=== PATIENT | male | born 1990 | race Caucasian/White ===

== ENCOUNTER 2016-11-07 08:53 | Inpatient (IN) | payer OTHER ==
[~2016-11-07] VITALS: Ht 188 cm; Wt 92.3 kg
--- NOTE | ~2016-11-07 | RESCARESUM ---
"PATIENT: ASHLEY GERBER | | [facility] UNIT #: [id number] | [address] AGE/SEX: 26 M : [birth year] | [address] | [place] [address] ADMIT/REG DATE: 11/07/16 | ROOM: [facility] LOC: ADTC | ADTC | Summary of Residential Care Primary [facility] Date of Admission: 11/07/16 Date of Discharge: 11/14/16 Referral Source: probation Primary Care Provider Prior to Admission: None Admitting Diagnosis: F10.20 Alcohol Use Disorder, severe; F17.200, Tobacco Use Disorder Discharge Diagnosis: Same as above Goals Achieved: No Goals were achieved as client left AMA. Continued Obstacles to Sobriety/Relapse Issues: Client left AMA Family Issues Addressed: None Y Individual Therapy Y Group Therapy Y Educational Series on Substance Abuse N Parents/Significant Others Attended Family Program N Acute Medical Problems During the Course of Treatment N Transferred to Hospital During the Course of Treatment Y Accepting of Substance Abuse Problem N Non-accepting of Substance Abuse Problem N Required Psychological or Psychiatric Consultation During the Course of Treatment Completed AA Step # 0 During This Level of Care Significant Incidences During Treatment: Client left AMA due to receiving a letter in the mail from [facility] [address] stating he had a court hearing for revoktion of probation and was being brought up on original charges. Reason For Discharge: N Completed Residential TX Goals and Ready For Next Level of Care Y Left Tx Against Medical Advice/Treatment Goals Not Complete N Completed Residential Tx Goals But Refusing Continuing Care Recommendations N Discharged Due to Noncompliance/Treatment Goals not Completed N Discharged Earlier Than Planned Due to: Continuing Care Plan/Recommendations: N Intensive Partial Care Y Sponsor N Partial Care Y AA Meetings/NA Meetings N Outpatient N Co-dependency Services N Therapeutic Community N 1[address] N [address] N Mental Health Therapy N Marriage Counseling Y Other PATIENT: ASHLEY GERBER | | [facility] UNIT #: [id number] | [address] AGE/SEX: 26 M : 88 | [address] | [place] [address] ADMIT/REG DATE: 11/07/16 | ROOM: [facility] LOC: ADTC | ADTC | Summary of Residential Care Specific Continuing Care Plan: It is recommended that client follow original recommendations of residential treatment. PRIMARY COUNSELOR: Jesusita Franklin"
--- NOTE | 2016-11-07 11:04 | NUR ---
ADMISSION NOTE Rights/Responsibilities: Copy given and explained to client. Signed and accepted by client. Client oriented to physical lay out of the ADTC unit, given Big Book and admission packet. A Justin was assigned. Sadiq Client is a 26yr old male. Referred by probation. Lives in [place], [place]. Brought totx by friend. DOC Alcohol, last used 10/28/16, 12 pack and a pt. daily. Allergies: PCN, Meds: none. No family participation at this time. Initial paperwork given and guidelines gone over Doctor has been notified.
--- NOTE | 2016-11-07 16:00 | NUR ---
Recovery 101 1 hr/ Clients all participated in reading, highlighting and discussing the Big Book on areas about honest, acceptance, living in problem vs living in solution, resentments, 1/2 measures, and the 12 promises.
--- NOTE | 2016-11-07 22:31 | NUR ---
Tech note: Client went to an onsite NA meeting. He was checked into his room, seen by the DR and gave his first intro. SE; Entering treatment.
--- NOTE | 2016-11-08 04:17 | NUR ---
Bed note: Client was in bed with eyes closed and no distress at all bed checks.
--- NOTE | 2016-11-08 12:42 | NUR ---
A.M. 1.5 hr res group/ratio 1:10/ Group heard a getting started and a goodbye letter to addiction. Discussed having resentment towards self, how kids are forgiving, and we oriented 3 new group members. This client was oriented for his first group. He related and sees his addiction has affected his kids.
--- NOTE | 2016-11-08 13:25 | NUR ---
Tech Note: Client participated in light stretching for morning exercise. Client stated that he is working on, "How to Get Started in Treatment."
--- NOTE | 2016-11-08 13:36 | NUR ---
Education One Hour: Client heard a presentation on Sexually Transmitted Disease.
--- NOTE | 2016-11-08 14:23 | NUR ---
Medication Note: Client took prn ibuprophen for H/A rated at 4.
--- NOTE | 2016-11-08 16:09 | NUR ---
Relapse Prevention Education, 1.0 hours, Client attended and actively participated in relapse prevention education which focused on a Relapse Prevention Quiz and discussion over the answers.
--- NOTE | 2016-11-08 16:17 | NUR ---
Individual Therapy, 1.0 hours, This session focused on orienting client to how treatment works. Client was welcomed and asked to explain the chain of events that led him to residential treatment. Client was advised he will see his counselor twice a week, is required to attend all programming and be on time, discussed family participation and signed release forms, explained visiting hours and no phone privileges for the first week, explained to wave at the [facility] if awake during bed check, and reviewed his initial treatment plan.
--- NOTE | 2016-11-08 16:18 | NUR ---
Trauma Note: Client denies any form of trauma.
--- NOTE | 2016-11-08 16:19 | NUR ---
Family Note: Client's ex- was contacted to see if she would be interested in attending family education and given the information on visiting hours.
--- NOTE | 2016-11-08 20:30 | NUR ---
education note: 1 hour lecture by counselor on" what knox are you willing to pay"
--- NOTE | 2016-11-08 22:57 | NUR ---
Tech note: Client attended the Alumni meeting, participated in guided meditation and attended an onsite AA meeting. SE; Group
--- NOTE | 2016-11-09 04:58 | NUR ---
Bed note: Client was in bed with eyes closed and motionless at all bed checks.
--- NOTE | 2016-11-09 09:02 | HP ---
ADMIT: 11/07/2016 RM/LOC: Crys508 [facility] MR#: [id number] [address] [place], [place] [address] ASHLEY GERBER [place] [address] [place] [id number] History and Physical SEX: M AGE: 26 : 1990 DATE OF SERVICE: This is for his admission to the residential care program with [facility]. CHIEF COMPLAINT: Alcoholism, drinking out of control while on probation. CLINICAL HISTORY: The patient is a 26-year-old white male, admitted to the residential care program at the [facility] for treatment of his alcohol use disorder. The patient readily admits he has a problem with alcohol. He notes even though he is on probation, he has continued to drink, and now is in risk of having his probation revoked because of recent arrest for drinking while on probation. The patient notes he is currently on probation for alcohol-related charges. The patient was arrested approximately a year ago for making terroristic threats. He actually ended up spending six months in longterm, and then was placed on probation. Despite being on probation, he has continued to drink or I should note relapse while on probation. Had been sober for almost a year when he relapsed in May of 2016, and has progressively been drinking more over the last several months. He notes that when he does drink, he usually drinks beer. Prior to being on probation, he was drinking daily, drinking to the point of intoxication, passing out, and having frequent blackouts. Its usually during the blackouts that he gets into the legal problems, which is what occurred when he was arrested for terroristic threats. A typical day of drinking would be to drink at least a 12 pack of beer and then after he has been drinking beer for most of the night, he usually switches to vodka and will have several shots or several mixed drink. It is when he starts drinking the vodka that he progresses into the blackouts. He notes that he does not use any other drugs. He experimented with marijuana once at age 15 and has never used it since. He denies any previous use of methamphetamine or cocaine. No abuse of prescription drugs. Alcohol is his drug of choice and it has been his ongoing drinking that has led to his multiple legal problems, which subsequently led to his probation and now his treatment here at the [facility]. Because of his drinking while on probation, he had started outpatient treatment at [facility] in [place], but continued to drink while in outpatient treatment. Therefore, they recommended a higher level of care. PAST MEDICAL HISTORY/PREVIOUS HOSPITALIZATIONS: He was hospitalized at age 4 with pneumonia and sepsis. He actually developed a septic hip and had to have surgical procedure for drainage and irrigation of his infected hip, was then on antibiotics, and was in the hospital for several weeks. He notes this was when he was age 4. Since that time, he has had no other hospitalizations or surgical procedures. CURRENT MEDICATIONS: None. ALLERGIES: HE IS ALLERGIC TO PENICILLIN. MEDICAL ILLNESSES: He denies any chronic health problems. He notes his general health is good. ADMIT: 11/07/2016 RM/LOC: A.508 [facility] MR#: [id number] [address] [place] [id number] ASHLEY GERBER [address] [place] [id number] History and Physical SEX: M AGE: 26 : 1990 REVIEW OF SYSTEMS: A 12-point review of systems is negative with no significant cardiac, pulmonary, GI, , musculoskeletal, or neurologic problems. He is noted to be a smoker. He also uses chewing tobacco. Smokes about a pack a day, but denies any respiratory complaints. SOCIAL HISTORY: The patient notes he has been once. His marriage lasted for 5 years. His drinking and legal problems played a major role in why they got . He has 3 daughters from his marriage, one daughter age 5 and a pair of twin girls age 3. He has another son age 2 from a relationship since his divorce. The patient notes that he dropped out of high school in the 11th grade, and has never gotten his GED. 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 Currently is unemployed. FAMILY HISTORY: He notes his father is . His father was an alcoholic and apparently of multiple strokes at the age of 42. His mother is an alcoholic. She currently is in treatment. He notes a strong history of alcoholism on both sides of his family. He notes he is the middle child. He has an older sister and a younger sister, neither of whom have had any alcohol- related issues. PHYSICAL EXAM: VITAL SIGNS: His temperature is 94.6, pulse is 73, respirations 24, blood pressure 133/93. His height is 6 feet 2 inches, weight 202 pounds. GENERAL: The patient is a 26-year-old white male, who appears his stated age. He is in no acute distress. HEENT: Reveals his ears to be clear. His nose has very noticeable septal deviation due to old fractures, deviated nasal septum. He does have a little difficulty breathing through his nose. Throat today is noninflamed. Oropharynx is normal. Dentition is in poor repair. NECK: Supple. Thyroid not enlarged. No cervical adenopathy. LUNGS: Noted to be clear. HEART: Regular rhythm without murmur. ABDOMEN: Nontender. No masses. No organomegaly. Bowel sounds are normoactive. He has no CVA or suprapubic tenderness. GENITALIA: Normal male. EXTREMITIES: Normal to gross exam. No clubbing or cyanosis. No calf tenderness. NEUROLOGICAL: He is intact with no focal deficit. Balance and gait today are normal. Cranial nerves II through XII are grossly intact. MENTAL STATUS EXAMINATION: He is pleasant, cooperative. Affect is appropriate. No bizarre ideation. No delusions. No significant depressive ADMIT: 11/07/2016 RM/LOC: A.508 [facility] MR#: [id number] [address] [place] [id number] ASHLEY GERBER [address] [place] [address] History and Physical SEX: M AGE: 26 : 1990 symptoms. He is oriented x3. Insight is limited. Judgment is guarded. ASSESSMENT AT THE TIME OF ADMISSION: 1. Alcohol use disorder, severe. 2. Tobacco use disorder. 3. Gastroesophageal reflux disease/chronic gastritis. PLAN: Plan is to admit the patient to the residential care program at the [facility] with a tentative discharge date of 12/05/2016. Upon completion of treatment, he would like to go to a senior living house. He recognizes that he is going to need some additional support and a structured environment to help maintain his long-term sobriety. Aubrey Silva MD/ malcolm JOB #: [id number] CC: Aubrey Silva, Attending Physician FAMILY PHYSICIAN, Family Physician
--- NOTE | 2016-11-09 10:41 | NUR ---
Tech notes: Client is working on Step 1
--- NOTE | 2016-11-09 11:30 | NUR ---
GROUP 1.5 HRS. 1:11 Discussion included the need for appropriate boundaries on the unit and working towards recovery/new behaviors, not addiction/old behaviors. Clients also discussed the effects on addiction as peers had parents that were addicts and then became the parent who addiction effected their own kids. This client was mostly quiet but appeared attentive.
--- NOTE | 2016-11-09 12:37 | NUR ---
Education note: Client had education by [facility]
--- NOTE | 2016-11-09 17:27 | NUR ---
SPIRITUAL EDUCATION 1 HR. Todays topics were orienting newcomers, and taking a look at Dilshad Gomez's 5 SECRETS TO SUCCESS which include a look at the miracles of the human body as blessings.
--- NOTE | 2016-11-09 20:57 | NUR ---
education: 1 hour video on unresolved anger and group discussion with counselor
--- NOTE | 2016-11-09 22:13 | NUR ---
Tech note: Client worked on beaded project and attended an onsite NA meeting. SE; NA meeting
--- NOTE | 2016-11-10 04:03 | NUR ---
Bed note: Client was in bed with eyes closed and no distress at all bed checks.
--- NOTE | 2016-11-10 10:30 | NUR ---
Tech Note: Client participated in Spiritual Enrichment. Client stated that he is working on Step One.
--- NOTE | 2016-11-10 11:30 | NUR ---
AM GRP 1.5 HRS, Ratio 1:11/ Clt participated in grp discussion and could relate to how his addiction hurt his kids and how important it is to stay clean and work recovery. He also could relate to how his Mom's addiction hurt him. He advised that he grew up in her addiction and had to figure things out himself.
--- NOTE | 2016-11-10 13:40 | NUR ---
Education 1 Hour: Client heard a presentation from a member of the recovery community who shared his experience, strength and hope.
--- NOTE | 2016-11-10 16:28 | NUR ---
step education 1 hr/ Focus was on step 2, handed out some questions they completed on paper and then opened it up for discussion. This client participated.
--- NOTE | 2016-11-10 19:00 | NUR ---
Individual Therapy, 1.0 hours, This session focused on review of clients BPS and his Getting Started Packet. Client was given Step 1 and feelings letters for assignments.
--- NOTE | 2016-11-10 23:49 | NUR ---
Tech Note: Client attended Guided Meditation and A.A.Meeting. No Walk-meeting with counselor at 7pm SE: All Day
--- NOTE | 2016-11-11 04:26 | NUR ---
Eduction: 1 Hour. Client attended "Unresolved Anger" video & discussion presented by staff.
--- NOTE | 2016-11-11 11:30 | NUR ---
GROUP 1.5 HR/ 11:1 Clients all reviewed rules and heard new member share about himself. This client was attentive and shared about dad dying of stroke, brother dying age 28, and these were the 2 people that meant the most to him. He did share GS packet about loss of dad, being in grouphomes, moving alot in adult life, having anger depression and was bad in school after loss of his father. He said his dad hung out in bars and used meth. His mother was drunk as a kid and not there for him. He doesn't want to be like his mom. (Could benefit from EMDR?)
--- NOTE | 2016-11-11 13:00 | NUR ---
PEER REVIEWS 1.5 HRS: Clt participated in peer review process and was able to give open and honest feedback to those receiving a review.
--- NOTE | 2016-11-11 16:25 | NUR ---
Tech Note: Client participated in group walk for exercise and watched "Recovery Issues Part 3" for afternoon video. Client is working on Step 1 and Feelings Letters.
--- NOTE | 2016-11-11 22:50 | NUR ---
TECH NOTE: Client participated in reading guidelines and watched tv/movies. attended off site optional AA meeting SE: group
--- NOTE | 2016-11-12 04:12 | NUR ---
Bed Note: Clt lay motionless in bed with eyes closed showing no distress at all bed checks.
--- NOTE | 2016-11-12 16:06 | NUR ---
Tech Note: Client attended NA Panel and is working on Step 1 and Feelings Letters.
--- NOTE | 2016-11-12 20:29 | NUR ---
Tech note: Clt played a game for recreation and attended offsite AA mtg. Clt watched tv and movies. SE was peers
--- NOTE | 2016-11-13 04:38 | NUR ---
Bed Note: Clt lay motionless in bed with eyes closed showing no distress at last two bed checks. The last bed check clt looked at tech.
--- NOTE | 2016-11-13 15:56 | NUR ---
Tech Note: Client participated in Big Book Study. Client stated that he is working on Step One and writing a letter to himself.
--- NOTE | 2016-11-13 22:51 | NUR ---
Tech Note: Clt attended AA panel and watched movies. SE was AA panel
--- NOTE | 2016-11-14 04:40 | NUR ---
Bed Note: Clt lay motionless in bed with eyes closed showing no distress at all bed checks.
--- NOTE | 2016-11-14 10:17 | NUR ---
Tech notes: Client is working on Step 1, Fl's and Mtg with esthela
--- NOTE | 2016-11-14 11:30 | NUR ---
Morning Group, 07/19 ration, 1.5 hours, Client attended and actively participated in group discussion. Client shared his feelings letter to his ex- and listened to others feedback on it.
--- NOTE | 2016-11-14 13:32 | NUR ---
Education: Client attended education by [facility] on Infection prevention.
--- NOTE | 2016-11-14 15:00 | NUR ---
Individual Session, 1.0 hours, This session focused on client's fear of going to retirement. Client received a letter that his probation was going to be revoked and he talked about wanting to go home and be with his kids in case he was going to go to retirement for 7 years. Client was asked to think about it and go to the chapel to pray about it. Client stated he just wasn't able to focus on treatment anymore and decided to leave.
--- NOTE | 2016-11-14 15:46 | NUR ---
DISCHARGE NOTE Client left tx and all personal belongings were sent with.
--- NOTE | 2016-11-14 16:00 | NUR ---
Recovery 101 1 hr/ Clients all were asked to share what they worked on in treatment or past treatments that really helped them and/or their experience with working an AA/NA program of recovery-what went well. This client was attentive.
--- NOTE | 2016-11-28 17:19 | NUR ---
CASE MANAGEMENT: Client had requested a change in his discharge date as he had already completed a week of treatment 11/07-11/14 then left because he thought he was going to have to go to longterm and wanted time with his children. Now, he is anxious to get back to [place] and find a job where he will be safe. I did discuss this with the care coordinator who agreed to discharge on 12/12.
--- NOTE | 2016-12-19 10:04 | DS ---
ADMIT: 11/07/2016 RM/LOC: [facility] MR#: [id number] [facility]#: [id number] [address] [id number] ASHLEY GERBER [address] [place] [id number] General Discharge Summary SEX: M AGE: 26 : 1990 ADMISSION DATE: 11/07/2016 DISCHARGE DATE: 11/14/2016 ADMITTING DIAGNOSIS: As per history and physical. FINAL DIAGNOSES: 1. Alcohol use disorder, severe. 2. Tobacco use disorder. 3. Chronic gastroesophageal reflux disease/esophageal reflux. COMPLICATIONS: None. OPERATIONS: None. CLINICAL HISTORY: The patient is a 26-year-old white male, admitted to the residential care program at the [facility] for treatment of his alcohol use disorder. The patient readily admits he is an alcoholic. For details of his pattern of usage and problems associated with his ongoing alcohol dependence, please see the clinical history portion of the dictated history and physical. Please also see dictated history and physical for pertinent findings on physical exam. LABORATORY AND X-RAY SUMMARY FROM THIS ADMISSION: None indicated, none performed. HOSPITAL COURSE: The patient was admitted to the residential care program. Assigned to his primary counselor, Jesusita Franklin. Remained in the treatment program from 11/07/2016 through 11/14/2016. While in treatment, he participated in individual therapy and group therapy. He was given the educational series on substance abuse and worked on these assignments while in treatment. He did not attend any of the family session since he left after being in treatment for only 1 week. While in treatment, he appeared to be accepting of his substance abuse problem. The client left AMA due to receiving a letter in the mail from [facility] stating he had a court hearing for revocation of probation and was being brought up on original charges. He left treatment AMA to try and resolve his legal issues, so that ADMIT: 11/07/2016 RM/LOC: [facility] MR#: [id number] 26[address] [facility] [address] [place] [id number] ASHLEY GERBER [address] [place] [address] General Discharge Summary SEX: M AGE: 26 : 1990 he did not end up in usp. The patient was encouraged to return to treatment upon resolution of his current legal difficulties. In the interim while he was dealing with legal issues, he was encouraged to attend 5 to 7 AA meetings per week and maintain contact with a sponsor, and as soon as legal issues are resolved, he should return to treatment for completion of residential treatment. CONDITION AT DISCHARGE: Unchanged. PROGNOSIS: Thought to be poor unless he returns and completes residential treatment. At discharge, he was dismissed on no medications. Encouraged to use [id number]-[id number] generic omeprazole for his chronic GERD symptoms. Aubrey Silva MD/ malcolm JOB #: [id number] CC: Aubrey Silva MD, Attending Physician NO FAMILY PHYSICIAN, Family Physician
== END 2016-11-14 15:51 | disposition left against medical advice (07) | DRG 894 ==
LOC: ADTC 08:53
PROVIDERS: ADMIT Family Medicine
PROC: HZ34ZZZ Individual Counseling for Substance Abuse Treatment, Interpersonal (ICD-10-PCS; principal; 2016-11-07)
PROC: HZ43ZZZ Group Counseling for Substance Abuse Treatment, 12-Step (ICD-10-PCS; principal; 2016-11-07)
DX: F10.20 Alcohol dependence, uncomplicated (principal); F17.220 Nicotine dependence, chewing tobacco, uncomplicated; K21.9 Gastro-esophageal reflux disease without esophagitis; Z56.0 Unemployment, unspecified; Z65.3 Problems related to other legal circumstances; Z88.0 Allergy status to penicillin; Z81.1 Family history of alcohol abuse and dependence

== ENCOUNTER 2016-11-21 09:07 | Inpatient (IN) | payer OTHER ==
[~2016-11-21] VITALS: Ht 188 cm; Wt 95.3 kg
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
--- NOTE | ~2016-11-21 | TXPLANREV ---
"PATIENT: ASHLEY GERBER | | [facility] UNIT #: [id number] | [address] AGE/SEX: 26 M : [birth year] | [address] | [place] [address] ADMIT/REG DATE: 11/21/16 | ROOM: [facility] LOC: ADTC | ADTC | Treatment Plan/Staffing Review Date: 01 DEC 2016 Treatment plan was reviewed and determined appropriate as written: TREATMENT PLAN IS APPROPRIATE WRITTEN. Treatment plan was reviewed and the following changes/addition/deletions are necessary: ADDITIONAL [place] PLANS WERE CREATED TO ADDRESS RELAPSE, FEELINGS LETTERS, SPONSORSHIP/MEETINGS SPRITUALITY/CONTROL Discharge plans were reviewed and determined appropriate as previously documented: TENTATIVE DISCHARGE DATE HAS BEEN CHANGED TO 12 DECEMBER 2016 CLIENT HAD ALREADY COMPLETED A WEEK OF TREATMENT PREVIOUSLY. Discharge plans were reviewed and determined to be as follows: CLIENT WILLING TO COMPLETE OUTPATIENT AFTERCARE AT [facility]. HE WILL BE WORKING WITH PORSCHE DONIS IN OUTPATIENT [place]. Other pertinent issues discussed during this staffing review include: CLIENT APPEARS TO BE MAKING GOOD PROGRESS AND HAS GAINED INSIGHT. HIS HAS BEEN UNABLE TO PARTICIPATE BUT PLANS TO ATTEND 12/12/2016 FOR FAMILY GROUP. CLIENT WILL DISCHARGE AFTER FAMILY GROUP ON THAT DATE. Staff Present: GISELE ALFRED PRIMARY COUNSELOR: DOROTHY FAGAN [facility] Client Signature Counselor Signature Date Time "
--- NOTE | ~2016-11-21 | RESCARESUM ---
"PATIENT: ASHLEY GERBER | | [facility] UNIT #: [id number] | [address] AGE/SEX: 26 M : 88 | [address] | [place] [phone] ADMIT/REG DATE: 11/21/16 | ROOM: [facility] LOC: ADTC | ADTC | Summary of Residential Care Primary Counselor: [facility] Date of Admission: 21 NOV 2016 Date of Discharge: 12 DECEMBER 2016 Referral Source: [facility] SENIOR CLINICIAN, PAKO ANDREWS Primary Care Provider Prior to Admission: [facility] Admitting Diagnosis: 303.90/F10.20 ALCOHOL USE DISORDER, SEVERE F17.20 TABACCO USE DISORDER Discharge Diagnosis: SAME ABOVE Goals Achieved: CLIENT COMPLETED ALL OBJECTIVES OF HIS TREATMENT PLAN INCLUDING STEP ONE, LETTING GO OF THE NEED TO CONTROL, FEELINGS LETTERS TO FAMILY MEMBERS, MY CHANGE PLAN/RELAPSE PREVENTION Continued Obstacles to Sobriety/Relapse Issues: SELF-WILL, LACK OF HEALTHY SUPPORT SYSTEM Family Issues Addressed: FAMILY DID NOT PARTICIPATE Y Individual Therapy Y Group Therapy Y Educational Series on Substance Abuse N Parents/Significant Others Attended Family Program Y Accepting of Substance Abuse Problem Completed AA Step # 1 During This Level of Care Significant Incidences During Treatment: NONE Reason For Discharge: Y Completed Residential [place] Goals and Ready For Next Level of Care Continuing Care Plan/Recommendations: Y Sponsor Y AA Meetings/NA Meetings Y Outpatient Y 3/ [facility] CLIENT MADE THE DECISION ON HIS OWN TO ENTER AND RESIDE AT THE [facility] Specific Continuing Care Plan: CLIENT WILL SEEK OUTPATIENT AFTERCARE AT [facility] [place] TO INCLUDE BOTH INDIVIDUAL AND GROUP THERAPY. CLIENT MADE DECISION TO APPLY AND WAS APPROVED TO RESIDE AT THE [facility]. CLIENT RECOMMENDED TO ATTEND AT LEAST THREE AA MEETINGS PER WEEK AND HAVE CONTACT WITH HIS SPONSOR AT LEAST THREE TIMES EACH WEEK THOUGHOUT HIS AFTERCARE TREATMENT. PATIENT: ASHLEY GERBER | | [facility] UNIT #: [id number] | [address] AGE/SEX: 26 M : 88 | [address] | [place] [address] ADMIT/REG DATE: 11/21/16 | ROOM: [facility] LOC: ADTC | ADTC | Summary of Residential Care PRIMARY COUNSELOR: DOROTHY FAGAN [facility]"
--- NOTE | ~2016-11-21 | INDIVTXPLN ---
"PATIENT: ASHLEY GERBER | | [facility] UNIT #: [id number] | [address] AGE/SEX: 26 M : 88 | [address] | [place] [phone] ADMIT/REG DATE: 11/21/16 | [facility] LOC: ADTC | ADTC | Individualized Treatment Plan Date: 08 DECEMBER 2016 Problem Statement/Issue Identified: NEEDS TO GAIN A BETTER UNDERSTANDING OF POTENTIAL RELAPSE TRIGGERS/ISSUES AND DEVELOP A PLAN TO DEAL WITH THEM THEY ARISE. Goal: WILL DEVELOP AN EFFECTIVE RELAPSE PREVENTION PLAN. Objectives/Activities to achieve goal: 1. will complete MY CHANGE PLAN identifying changes in his thinking and behaviors that he is willing to make in his recovery efforts. He will process his work with his primary counselor and selected pages in group. Due Date: Complete: Incomplete: 2. will complete RELAPSE PREVENTION packet to share with primary counselor. Due Date: Complete: Incomplete: Client signature Date Counselor signature Date Outcome/Measurement of Progress Towards Goal: Counselor's signature Date "
--- NOTE | ~2016-11-21 | CLPRLASSUM ---
"PATIENT: ASHLEY GERBER | | [facility] UNIT #: [id number] | [address] AGE/SEX: 26 M : 88 | [address] | [place] [phone] ADMIT/REG DATE: 11/21/16 | ROOM: [facility] LOC: ADTC | ADTC | Client Problem List/Assessment Summary Date: 28 NOV 2016 Problems identified by the client: PRIMARY SUPPORT GROUP, SOCIAL, FINANCIAL, LEGAL Problems identified by significant others: NONE AVAILABLE Client's Strengths as Identified by Client: HARD WORKING, ON TIME, HONEST, GOOD FATHER Problem List: Zee NEWTON HAS CONTINUED TO ABUSE ALCOHOL DESPITE ONGOING NEGATIVE CONSEQUENCES. HIS ALCOHOL ABUSE HAS RESULTED IN CRIMINAL THINKING WHICH HAS CREATED SIGNIFICANT LEGAL PROBLEMS/ INCARCERATION. Zee NEWTON NEEDS TO GAIN A BETTER UNDERSTANDING OF POTENTIAL RELAPSE TRIGGERS/ISSUES AND DEVELOP A PLAN TO DEAL WITH THEM EFFECTIVELY THEY ARISE. T IT WILL BE IMPORTANT FOR AMAN TO DEVELOP A SUPPORT STYSTEM WITHIN THE RECOVERY COMMUNITY AND TO REACH OUT FOR HELP FROM HIS SPONSOR AND OTHER MEN IN . Zee NEWTON PROFESSES A BELIEF IN GOD BUT HAS TURNED TO ALCOHOL TO HELP HIM COPE WITH LIFE CHALLANGES AND FRUSTRATIONS. Code Meza: T: to be addressed during course of treatment O: problem noted, expected to resolve itself with abstinence--specific tx plan not required R: problem noted, will be referred upon discharge PRIMARY COUNSELOR: DOROTHY FAGAN [facility]"
--- NOTE | ~2016-11-21 | TXPLANREV ---
"PATIENT: ASHLEY GERBER | | [facility] UNIT #: [id number] | [address] AGE/SEX: 26 M : 88 | [address] | [place] [phone] ADMIT/REG DATE: 11/21/16 | ROOM: [facility] LOC: ADTC | ADTC | Treatment Plan/Staffing Review Date: 08 DECEMBER 2016 Treatment plan was reviewed and determined appropriate as written: TREATMENT PLAN IS APPROPRIATE WRITTEN. Treatment plan was reviewed and the following changes/addition/deletions are necessary: ADDITIONAL PLANS WERE CREATED TO ADDRESS FEELINGS, RELAPSE AND DEVELOPING A SUPORT SYSTEM IN THE RECOVERY COMMUNITY. Discharge plans were reviewed and determined appropriate as previously documented: YES, PREVIOUSLY DOCUMENTED DISCHARGE RECOMMENDATIONS ARE APPROPRIATE. CLIENT HAS APPLIED TO AND BEEN ACCEPTED AT THE [facility] IN [place]. Discharge plans were reviewed and determined to be as follows: CLIENT TENTITIVELY SCHEDULED TO DISCHARGE ON 12 DECEMBER 2106 FOLLOWING FAMILY GROUP. Other pertinent issues discussed during this staffing review include: CLIENT WAS ALLOWED TO ATTEND COURT YESTERDAY REGARDING HIS PROBATION. HE IS CURRENTLY WORKING ON MY CHANGE PLAN & RELAPSE PREVENTION. CLIENT PLANS TO DO HIS AFTERCARE HERE AT [facility] WITH [facility]. Staff Present: TERRY CHAVEZ PRIMARY COUNSELOR: DOROTHY FAGAN [facility] Client Signature Counselor Signature Date Time "
--- NOTE | ~2016-11-21 | INDIVTXPLN ---
"PATIENT: ASHLEY GERBER | | [facility] UNIT #: [id number] | [address] AGE/SEX: 26 M : 88 | [address] | [place] [phone] ADMIT/REG DATE: 11/21/16 | ROOM: [facility] LOC: ADTC | ADTC | Individualized Treatment Plan Date: 08 DECEMBER 2016 Problem Statement/Issue Identified: IT WILL BE IMPORTANT FOR TO DEVELOP A NEW PEER GROUP WITHIN THE RECOVERY COMMUNITY TO SUPPORT HIS RECOVERY EFFORTS. Goal: WILL BECOME WILLING TO START BUILDING HEALTHY RELATIONSHIPS WITH OTHER MEN WHO HAVE ACHIEVED SENIOR LIVING RECOVERY. Objectives/Activities to achieve goal: 1. Ai will obtain a TEMPORARY SPONSOR AND FIVE PHONE CONTACTS that he will be willing to call once he has completed his residential treatment. Due Date: Complete: Incomplete: 2. will attend all 12-STEP MEETINGS available to him while he is in treatment and make an effort to reach out to other men who have achieved long term sobriety. Due Date: Complete: Incomplete: Client signature Date Counselor signature Date Outcome/Measurement of Progress Towards Goal: Counselor's signature Date "
--- NOTE | ~2016-11-21 | INDIVTXPLN ---
"PATIENT: ASHLEY GERBER | | [facility] UNIT #: [id number] | [address] AGE/SEX: 26 M : 88 | [address] | [place] [address] ADMIT/REG DATE: 11/21/16 | ROOM: [facility] LOC: ADTC | ADTC | Individualized Treatment Plan Date: 28 NOV 2016 Problem Statement/Issue Identified: HAS CONTINUED TO ABUSE ALCOHOL DESPITE ONGOING NEGATIVE CONSEQUENCES. Goal: NEEDS TO HONESTLY AND REALISTICALLY IDENTIFY EXAMPLES OF UNMANAGIBILITY AND POWERLESSNESS OVER ALCOHOL AND THE NEGATIVE IMPACT IT HAS HAD ON HIS LIFE AND THE QUALITY OF HIS FAMILY RELATIONSHIPS. Objectives/Activities to achieve goal: 1. will compelte GETTING STARTED IN TREATMENT packet identifying the increase of dependence on alcohol over the years, a brief life story and thinking/behaviors that could sabotage his recovery efforts. He will process his work with his primary counselor and selected pages with his peer group. Due Date: Complete: Incomplete: 2. will read KATIE THINKIN highlighting thinking and behaviors from examples provided that parallel his own history. He will process his work and any insights gained with his primary counselor. Due Date: Complete: Incomplete: 3. will complete an honest and thorough STEP ONE identifying specific examples of preoccupation, high risk behaviors and ways he has compromised his personal values. He will share his work with his primary counselor and selected pages with his peer group. Due Date: Complete: Incomplete: Client signature Date Counselor signature Date Outcome/Measurement of Progress Towards Goal: Counselor's signature Date "
--- NOTE | ~2016-11-21 | INDIVTXPLN ---
"PATIENT: ASHLEY GERBER | | [facility] UNIT #: [id number] | [address] AGE/SEX: 26 M : 88 | [address] | [place] [phone] ADMIT/REG DATE: 11/21/16 | [facility] | Individualized Treatment Plan Date: 08 DECEMBER 2016 Problem Statement/Issue Identified: VERBALIZES A BELIEF IN GOD BUT CONTINUES TO REACH OUT FOR ALCOHOL TO HELP HIM COPE WITH LIFE CHALLANGES AND FRUSTRATIONS. Goal: WILL WORK ON LETTING GO/LETTING GOD IN HIS EFFORT TO DEVELOP A CLOSER RELATIONSHIP WITH HIS HIGHER POWER. Objectives/Activities to achieve goal: 1. will be willing to pray multiple times daily asking God to direct his path and help him be willing to let go of self-will. Due Date: Complete: Incomplete: 2. will read LETTING GO OF THE NEED TO CONTROL highlighting examples of thinking errors and behaviors that parallel his own experience. He will process these examples and insights gained with his primary counselor. Due Date: Complete: Incomplete: Client signature Date Counselor signature Date Outcome/Measurement of Progress Towards Goal: Counselor's signature Date "
--- NOTE | 2016-11-21 10:37 | NUR ---
ADMISSION NOTE Rights/Responsibilities: Copy given and explained to client. Signed and accepted by client. Client oriented to physical lay out of the ADTC unit, given Big Book and admission packet. A Justin was assigned. Martin Client is a 26yr old male. Referred by probation. Lives [place], [place]. DOC alcohol, last used 11/04/16, 6 pack and a pint. Allergies: PCN, Meds: none. No family participation at this time. Initial paperwork given and guidelines gone over. Was searched no contraband. Doctor has been notified.
--- NOTE | 2016-11-21 16:14 | NUR ---
Recovery 101 - client was only in this for 10 minutes, received consequences of use questionaire before left.
--- NOTE | 2016-11-21 16:21 | NUR ---
RECOVERY 101 1 HR/ Clients all filled out 30 question sheet on consequences of their use, looking at every chemical they have used to help see powerlessness and not minimize any chemicals they have abused. Clients learned about early stages and definition of addiction. This client was involved.
--- NOTE | 2016-11-21 20:50 | NUR ---
Education 1 HR: Clt listened to lecture given by counselor on communication.
--- NOTE | 2016-11-21 23:17 | NUR ---
Client played a game for rec and attended on site N.A.Meeting SE: Back in treatment and still sober!
--- NOTE | 2016-11-22 04:59 | NUR ---
Bed Note: Client was in bed and motionless at all bed checks
--- NOTE | 2016-11-22 12:17 | NUR ---
FAMILY NOTE: Client is from his ex . Split from the mother of his 4th child. Client was here a week earlier in the month. His ex was contacted at that time, but did not commit to participation. Will talk with staff as this sounds like a potentially toxic relationship.
--- NOTE | 2016-11-22 12:17 | NUR ---
TRAUMA NOTE: Client denies any history of trauma.
--- NOTE | 2016-11-22 12:19 | NUR ---
INDIVIDUAL SESSION 1 HR: CLIENT ORIENTED TO TREATMENT GUIDELINES, GOALS AND OBJECTIVES. INITIAL GENERIC TREATMENT PLAN WAS REVIEWED AND SIGNED. Additional copies were made for this client. Began to review his BIO/PSYCHO/SOCIAL ASSESSMENT. Client appeared guarded at times as staff posed questions and/or probed for more detail. Client is on probation three years out of [facility] for Terroristic Threats. Charges were dropped from weapons charges and attempted murder. During the course of the interview, client identified that his mother is in [facility] in D/A treatment after 8th DUI. She is known to us, and has been here multiple times. This is client's first treatment. Admits that he has been a daily drinker, consuming 15 beers and vodka per episode. Client admitted that he coughs up blood when he drinks vodka but has continued to drink it. Client was , then due to infidelity. He got another woman and they have a son together but no relationship anymore. He wants to blame her for him starting up drinking again. Client denies any consequences of his mother's alcoholism. Says he lived with his dad much of the time, tho dad after a stroke when client was 14. Denies grief issues. He had his GETTING STARTED packet completed before he left treatment so has processed parts of it in group. His previous counselor had assigned his STEP ONE & FEELINGS LETTERS. No treatment plan was created. Client was assigned KATIE GÓMEZ. Client believes that he jsut needs to stop drinking and everything will be fine.
--- NOTE | 2016-11-22 15:24 | NUR ---
Tech Note: Client joined group for afternoon walk, listened to speaker from the [facility] [place] and is working on Step 1.
--- NOTE | 2016-11-22 16:09 | NUR ---
Tech Note: Client attended Relapse Prevention education with Kori.
--- NOTE | 2016-11-22 19:56 | NUR ---
Education: 1 hour lecture on STD/AID/HIV gikyler by [facility].
--- NOTE | 2016-11-22 22:40 | NUR ---
Tech note : Client worked on [employer] crafts and get well cards. Client participated in guided meditation and went to an onsite AA meeting.
--- NOTE | 2016-11-23 04:18 | NUR ---
Bed note: Client was in bed with eyes closed and no distress at all bed checks
--- NOTE | 2016-11-23 11:18 | NUR ---
Tech Note: Client is working on Step 1, Feelings Letters and Sarahnkin Thinkin.
--- NOTE | 2016-11-23 12:30 | NUR ---
AM GROUP 13:1/1.5 HR: Client and peers heard multiple clients process assignments and issues. Most did offer feedback, asked clarifying questions and shared from their own experiences. This client was mostly quiet but did, from time to time, ask clarifying questions.
--- NOTE | 2016-11-23 13:20 | NUR ---
Tech Note: Client walked in the hallways for afternoon exercise.
--- NOTE | 2016-11-23 13:24 | NUR ---
Education One Hour: Client heard from members of the recovery community, who shared their experience, strength and hope.
--- NOTE | 2016-11-23 17:24 | NUR ---
SPIRITUAL EDUCATION 1 HR. Topics today were orienting newcomers and then broke into groups and did presentations on their sections from [employer].
--- NOTE | 2016-11-23 18:48 | NUR ---
Education: 1 hour lecture given by counselor on "Disease concept".
--- NOTE | 2016-11-23 22:37 | NUR ---
Tech note: Client played catch phrase for rec and attended an onsite NA meeting. SE: peers
--- NOTE | 2016-11-24 05:02 | NUR ---
Bed note: Client was in bed with eyes closed and no distress at all bed checks.
--- NOTE | 2016-11-24 11:29 | NUR ---
Tech Note; Client participated in light stretching for morning exercise. Client stated that he is working on Step One and, "Joo' Thinkin."
--- NOTE | 2016-11-24 12:51 | HP ---
ADMIT: 11/21/2016 RM/LOC: [facility] MR#: [id number] [address] [address] [place] [id number] ASHLEY PAGAN [address] [place] [address] History and Physical SEX: M AGE: 26 : 1990 DATE OF SERVICE: INTERIM HISTORY: Mr. Pagan is a 26-year-old white male, readmitted to the residential care program for completion of treatment for his alcohol use disorder. The patient had previously been admitted on 11/07/2016 and remained in treatment until 11/14/2016. He left [facility] after there was some confusion with his court case, and he was given misinformation by his public relations senior associate, and he felt that he was going to be incarcerated no matter what he did as far as treatment. There apparently was some confusion and he left [facility]. The patient notes that since leaving the treatment program he has been staying with his ex- for the past week, he has not drank alcohol or used any drugs in the past 7 days since he left [facility]. He comes back to treatment for completion of treatment. For details of his pattern of usage and problems associated with his ongoing alcoholism, please see the previous H and P from 11/07/2016. I also refer you to the previous H and P from 11/07/2016 for past medical history and review of systems. There has been no change in his overall health status in the past 7 days since he left [facility]. There is also no change in social history or family history. PHYSICAL EXAMINATION: VITAL SIGNS: At this time, temp is 94.5, pulse 79, respirations 20, blood pressure 137/88, height is 6 feet 2 inches, and his weight is 209 pounds. GENERAL: The patient is a 26-year-old white male, who appears his stated age. He is in no acute distress. He is oriented x3. HEENT: Exam reveals his ears to be clear. The patient does have a very noticeable nasal septal deviation from old nasal fracture. Throat today is noninflamed. Oropharynx is normal. Dentition is in poor repair. NECK: Supple. Thyroid not enlarged. No cervical adenopathy. No neck masses. LUNGS: Noted to be clear throughout. HEART: Regular rhythm without murmur. ABDOMEN: Soft, nontender. No masses. No organomegaly. Bowel sounds are normoactive. He has no CVA or suprapubic tenderness. GENITALIA: Normal male. EXTREMITIES: Normal to gross exam. No clubbing or cyanosis. No peripheral edema. No calf tenderness. NEUROLOGICAL: He is intact with no focal deficit. Balance and gait are normal. Cranial nerves II through XII are grossly intact. MENTAL STATUS EXAMINATION: He is pleasant, cooperative. Affect is appropriate. He has no bizarre ideation, no delusions, and no significant depressive symptoms. He is oriented x3. His insight is limited. Judgment is ADMIT: 11/21/2016 RM/LOC: [email or web address] MR#: [id number] [address] [id number] ASHLEY PAGAN [address] [place] [address] History and Physical SEX: M AGE: 26 : 1990 guarded. ASSESSMENT: At the time of readmission: 1. Alcohol use disorder, severe. 2. Tobacco use disorder. 3. Chronic gastroesophageal reflux disease/esophageal reflux. PLAN: To readmit the patient for completion of treatment. His tentative discharge date will be 12/19/2016. The patient's ultimate disposition will be determined by the outcomes of pending legal proceedings. The patient is open to the option of going to a usp house once he gets all legal issues resolved. Aubrey Silva MD/ malcolm JOB #: [id number] CC: Aubrey Silva, Attending Physician FAMILY PHYSICIAN, Family Physician
--- NOTE | 2016-11-24 16:08 | NUR ---
Step Education 1 hr/Focus was on step 4 making a searching and fearless moral inventory of ourselves. Handed out some questions each person answered on paper and then we discussed. This person participated.
--- NOTE | 2016-11-24 16:22 | NUR ---
Education 1 Hour: Client heard from two members of the recovery community, who shared their experience strength and hope.
--- NOTE | 2016-11-24 20:26 | NUR ---
Education: 1 Hour. Client attended Kory Orosco "Unhealthy Families" video.
--- NOTE | 2016-11-24 23:04 | NUR ---
Client went on a walk for rec, participated in guided meditation, and attended the on unit A.A.Meeting. Redirected to take boateng down in building. SE: Seeing Bao today
--- NOTE | 2016-11-25 05:39 | NUR ---
tech note: client was motionless in no distress at all bed checks.
--- NOTE | 2016-11-25 11:39 | NUR ---
Group 1.5 Hr Ratio 1:11/Topics today were two Getting started packets, feelings letters and a letter to self. Client shared how hr could relate to what peers were sharing.
--- NOTE | 2016-11-25 14:53 | NUR ---
Tech Note: Client joined our group walk for exercise. Watched video titled "Sound of Silence" and is working on the Big Book.
--- NOTE | 2016-11-25 15:45 | NUR ---
PEER REVIEWS 1.25 HRS: Clt participated in peer reviews and took a risk to give open and honest feedback to those receiving a review.
--- NOTE | 2016-11-25 17:07 | NUR ---
INDIVIDUAL SESSION 1 HR: Much better session today. Client was not nearly as defensive. We did go over his GETTING STARTED packet on which he has done a good job. Client appears sincere in his want for a different lifestyle, but I think he is pretty chronic for as young as he is. Both parents are alcoholic with mom in treatment again in [place] (he says she doesn't sound very serious.) Dad when client was only 14 y/o. He has heard enough thus far that he is gaining new understanding and insight. Was encouraged to start on FEELINGS LETTERS & assigned LETTING GO OF THE NEED TO CONTROL. Session 11/28
--- NOTE | 2016-11-25 20:33 | NUR ---
TECH NOTE: Client participated in reading of guidelines, watched TV/movies SE: group
--- NOTE | 2016-11-26 04:32 | NUR ---
BED NOTE: Client was in bed, motionless with eyes closed all bed checks.
--- NOTE | 2016-11-26 16:26 | NUR ---
Tech Note: Client is working on Feelings Letters.
--- NOTE | 2016-11-26 20:31 | NUR ---
Tech note: Clt played a game for recreation and attended offsite AA mtg. Clt watched tv and played cards. SE was tv
--- NOTE | 2016-11-27 04:26 | NUR ---
BED NOTE: Client was in bed motionless with eyes closed all three bed checks.
--- NOTE | 2016-11-27 16:02 | NUR ---
Tech Note: Client participated in Big Book study. Client stated that he is working on, "Letting Go of the Need to Control." Client received visitors.
--- NOTE | 2016-11-27 23:10 | NUR ---
Tech Note: Client attended the A.A.Panel with Amaury Farfan SE: All Day
--- NOTE | 2016-11-28 04:39 | NUR ---
Bed Note: Client was laying in bed and motionless at all bed checks.
--- NOTE | 2016-11-28 09:51 | NUR ---
Tech note: Client is working on Letting Go.
--- NOTE | 2016-11-28 12:57 | NUR ---
Education Note: Clients attended speaker for education Kit J.
--- NOTE | 2016-11-28 15:53 | NUR ---
PEER REVIEWS 1.25 HRS: Clt participated in peer reviews and took a risk to give open and honest feedback to those receiving a review.
--- NOTE | 2016-11-28 16:00 | NUR ---
RECOVERY 101 1 hr/ Clients discussed what they are learning from attending the 12 step recovery meetings about fundamentals of recovery, how to work a program such as: get and use a sponsor, work the steps, read C.A.L., HOW/honesty, openminded &willing, service work, HP/spirituality, opening up, slogans, serenity prayer, home group/meetings, etc. Clients shared and got into story telling at times. They learned 15% is addiction and 85% is the living problem so this is why keep going to meetings and working the program is vital.
--- NOTE | 2016-11-28 17:00 | NUR ---
INDIVIDUAL SESSION 1 HR: Client processed from part of his STEP ONE. It appears that he has been thorough with this. He has identified specific examples of his powerlessness and unmagability. Client said his came up this weekend with the 3 girls. Client said they had a good talk, and she is willing to let him come back home in [place]. Client had talked to previous counselor (Jesusita) when he was here before and would like to see her in aftercare. She has already agreed to this according to him, so I will double check with her to get it set up. I had made it a treatment goal for client to get a temporary sponsor while he is here in treatment. Client basically said he will wait until he gets back to [place], but did say he has gathered a few phone numbers. Client encouraged to work on FEELINGS LETTERS to family members. He said he did work on Grief letter to his dad this weekend. Dad suddenly when client was only 14. He said he was surprised to shed tears as he thought he had already dealt with it. He was given copies of his treatment plan.
--- NOTE | 2016-11-28 17:10 | NUR ---
FAMILY NOTE: Another call placed to client's ex- to at least invite her to come for the Family Group. She has not responded to my previous calls.
--- NOTE | 2016-11-28 17:23 | NUR ---
CASE MANAGEMENT: Client had requested a change in his discharge date as he had already completed a week of treatment 11/07-11/14 then left because he thought he was going to have to go to shelter and wanted time with his children. Now, he is anxious to get back to [place] and find a job where he will be safe. I did discuss this with the clinical unit coordinator who agreed to discharge on 12/12.
--- NOTE | 2016-11-28 18:21 | NUR ---
Education: 1 Hour. Client attended "Feelings" lecture presented by staff.
--- NOTE | 2016-11-28 21:22 | NUR ---
tech note: client c/o congestion @ 2121 mucinex was given.
--- NOTE | 2016-11-28 23:42 | NUR ---
tech note: client played Catch Phrase for recreation & attended onsite NA meeting.Client was redirected during the client meeting for inappropriate language. SE: All day.
--- NOTE | 2016-11-29 04:48 | NUR ---
tech note: client was motionless in no distress at all bed checks.
--- NOTE | 2016-11-29 15:10 | NUR ---
A.M. 1.5 hr group/ratio 07/20/ Group heard a step 1, how to get started, grief letter and discussed the importants of not glorifying as one client was confronted on this. This client shared a greif letter to his dad who passed and talked about his brother who also after that. He gave peer feedback after peer glorified stealing from others when high and said he has always worked hard and people stole from him and he feels mad peer did this and is gloating about it.
--- NOTE | 2016-11-29 15:43 | NUR ---
Relapse Prevention, 1.0 hours, Client attended and actively participated in relapse prevention education which focused on compulsive behaviors and relapse.
--- NOTE | 2016-11-29 16:05 | NUR ---
Tech Note: Client watched Part 2 of Predator by Andrews Zavala and had Relapse Prevention for 3:00 education. Assignment being worked on: Feelings Letters and Big Book.
--- NOTE | 2016-11-29 16:21 | NUR ---
Education Note: Client attended Relapse Prevention presented by counselor Jesusita.
--- NOTE | 2016-11-29 20:16 | NUR ---
Education: 1 hour lecture given by counselor on relapse.
--- NOTE | 2016-11-29 20:23 | NUR ---
tech note: Client went for walk for rec, participated in guided meditation and attended AA meeting
--- NOTE | 2016-11-29 23:25 | NUR ---
Tech Note: Client went on a walk for rec and attended the on unit A.A.Meeting. Client participated in Guided Meditation at 1930. SE: Group
--- NOTE | 2016-11-30 04:54 | NUR ---
Bed note: client was in bed with eyes closed and no distress at all bed checks.
--- NOTE | 2016-11-30 10:17 | NUR ---
Tech notes: Client is working on Fl's
--- NOTE | 2016-11-30 11:30 | NUR ---
BIG GROUP 4:21 Group was brought together to discuss issues of old behaviors, treatment relationships and other violations of guidlines that are being kept secret. All were encouraged to look at the difficulty they have confronting with assertiveness, rather than passive/aggressive. This client shared his frustration with the lack of seriousness when prompted.
--- NOTE | 2016-11-30 13:45 | NUR ---
Educational note: Client watched a video for education.
--- NOTE | 2016-11-30 17:12 | NUR ---
SPIRITUaL EDUCATION 1 HR. Clients were oriented to the group and learned difference between spirituality and sabianist. We addressed GRATITUDE today with discussion, worksheet and activity.
--- NOTE | 2016-11-30 18:21 | NUR ---
Education: 1 Hour. Client attended "Self Esteem" lecture presented by staff.
--- NOTE | 2016-11-30 23:09 | NUR ---
tech note: client went on a walk for recreation & attended the onsite NA meeting. SE: seeing peer who recently graduated [place].
--- NOTE | 2016-12-01 05:08 | NUR ---
Bed Note: Clt lay motionless in bed with eyes closed showing no distress at all bed checks.
--- NOTE | 2016-12-01 11:07 | NUR ---
Tech Note: Client participated in Spiritual Enrichment. Client stated that he is working on writing Feelings Letters.
--- NOTE | 2016-12-01 11:53 | NUR ---
Group 1.5 Hr Ratio 1:10/Topics today were two step ones, two Gettings started packets andtwo feelings letters. Client shared how he could relateto what peers were sharing from assignments.
--- NOTE | 2016-12-01 15:57 | NUR ---
INDIVIDUAL SESSION 1 HR: Client processed insights from LETTING GO OF THE NEED TO CONTROL. Client has learned a lot about himself and his behaviors in reading this little booklet. Client said, "Everybody should have to read this!" Client able to see how these instincts formed during his childhood, how he has manipulated family and girlfriend/, and others to get them to do/ think/act like "he thought they should." Good session. He is working on MY CHANGE PLAN/RELAPSE PREVENTION.
--- NOTE | 2016-12-01 16:51 | NUR ---
FAMILY EDUCATION 3 HRS. Client attended alone and took part in the discussion on the disease concept. Client shared consequences of his addiction.
--- NOTE | 2016-12-01 19:14 | NUR ---
Education 1 Hour: Client heard a presentation on marijuana.
--- NOTE | 2016-12-01 22:09 | NUR ---
Education 1 HR: Clt watched video by Ana Luisa "Rita Suarez" with staff present.
--- NOTE | 2016-12-01 22:29 | NUR ---
Tech Note: Clt walked for recreation, attended GM and onsite AA mtg. SE was AA and todays issues.
--- NOTE | 2016-12-02 04:44 | NUR ---
Bed Note: Clt lay motionless in bed with eyes closed showing no distress at all bed checks.
--- NOTE | 2016-12-02 11:30 | NUR ---
GROUP 1.5 HRS. 1:11 Client processed from his step 1 assignment to identify how betrayed values (pg. 10) and effects on others (pg. 11). He did a good job taking ownership of his behaviors and offered more details about his behaviors when drunk. He shared that his 29 year old brother in 2014 from drinking and smoking. Peers processed feelings letters and sharing damage to relationships.
--- NOTE | 2016-12-02 15:59 | NUR ---
PEER REVIEWS 1.25 HRS: Clt participated in peer reviews and took a risk to give open and honest feedback to those receiving a review.
--- NOTE | 2016-12-02 16:09 | NUR ---
Tech Note: Client listened to speaker Danny Hudson and is working on his Change Plan.
--- NOTE | 2016-12-02 20:37 | NUR ---
Tech note: client watched TV and movies. Walked to optional offiste AA meeting. SE:speaker
--- NOTE | 2016-12-03 04:55 | NUR ---
Bed note: Client was in bed with eyes closed and no distress at all bed checks.
--- NOTE | 2016-12-03 16:46 | NUR ---
Tech Note: Client attended the A.A.Meeting at [address] [place] [address] and is working on Relapse Prevention.
--- NOTE | 2016-12-03 22:43 | NUR ---
Tech note: Client walked around the park a few times for rec. Client walked to an off site AA meeting. SE: Getting a sponsor
--- NOTE | 2016-12-04 04:59 | NUR ---
Bed note: client was in bed with eyes closed and no distress at all bed checks.
--- NOTE | 2016-12-04 15:27 | NUR ---
TECH NOTE: Client participated in big book study, attended yazidism, completed chores and watched tv/movies.
--- NOTE | 2016-12-04 23:10 | NUR ---
tech note: Client participated in Community Clean.Client talked on the phone. Client has 30 days clean. SE: Interview with Amy Sotelo.
--- NOTE | 2016-12-05 04:40 | NUR ---
Bed note: client was in bed with eyes closed and no distress at all bed checks.
--- NOTE | 2016-12-05 14:56 | NUR ---
Tech note: Client is working on Relapse prevention
--- NOTE | 2016-12-05 22:51 | NUR ---
Tech Note: Clt walked for recreation and attended onsite NA mtg. Clt watched movies and used phone. SE was [facility] interview and NA
--- NOTE | 2016-12-06 04:40 | NUR ---
Bed Note: Clt lay motionless in bed with eyes closed showing no distress at all bed checks.
--- NOTE | 2016-12-06 12:29 | NUR ---
A.M. 1.5 hr group/ratio 1:9/ Group heard a letter to addiction, a step 1, and discussed keeping balance between doing nice things for others and focusing on self. This client shared that he slept with a lot of women when he was drinking but plans on staying faithful to his significant other now. He has a fear of not having fun when sober.
--- NOTE | 2016-12-06 15:35 | NUR ---
Tech Note: Client participated in light stretching for morning exercise and went on an outdoor walk in the afternoon. Client stated that he is working on, "My Change Plan."
--- NOTE | 2016-12-06 15:46 | NUR ---
Education 1 Hour: Client watched the video, "How to Sabotage your Treatment."
--- NOTE | 2016-12-06 22:52 | NUR ---
Tech note: Client walked a mile for rec, did guided meditation and attended an onsite AA meeting. SE; 30 days
--- NOTE | 2016-12-07 04:21 | NUR ---
Education: 1 Hour. Client attended presentation by staff on "Step 1."
--- NOTE | 2016-12-07 05:12 | NUR ---
Bed note: Client was in bed with eyes closed and in no apparent distress at all bed checks.
--- NOTE | 2016-12-07 09:37 | NUR ---
Tech notes: Client is working on Relapse prevention and court today.
--- NOTE | 2016-12-07 11:37 | NUR ---
Group 1.5 hr Ratio 1:7/Topics today were orientating two new clients to group rules and goals, a good bye letter to an addiction and being able to say no. Client shared how he could relate to what peers were sharing from assignments and issues. Client is not sure what he is going to do to replace the tijme he spent using other than working.
--- NOTE | 2016-12-07 13:29 | NUR ---
Education note: Client attend educational speaker Judy Gilliam
--- NOTE | 2016-12-07 19:49 | NUR ---
med note: client complained of head ache pain level 4. motrin 400 given
--- NOTE | 2016-12-07 22:21 | NUR ---
Tech note : Client played catch phrase for rec and attended an onsite NA meeting. SE; Seeing his girls
--- NOTE | 2016-12-08 04:41 | NUR ---
Bed note: client was in bed with eyes closed and no distress at all bed checks.
--- NOTE | 2016-12-08 10:45 | NUR ---
Tech Note : Client participated in Spiritual Enrichment. Client stated that he is working on, "My Change Plan."
--- NOTE | 2016-12-08 11:30 | NUR ---
AM GRP 1.5 HRS, Ratio 1:10/ Clt participated in grp discussion on various topics, including relationships, with PO's, counselors, s/o's and kids. He began complaining about his counselor, thinking she's mad at him, and was stopped and told he needs to tell her how he really feels, as one of the peers wanted to jump on his bandwagon and complain about staff. They heard we will not do so in this grp.
--- NOTE | 2016-12-08 13:10 | NUR ---
Education 1 Hour: Client heard a recovery speaker who addressed the subject of hope.
--- NOTE | 2016-12-08 17:02 | NUR ---
Step education/1 hr/ Focus was on step 7 of the 12 steps "Humbly asked him to remove shortcomings", and each person completed a set of questions on paper and then discussed. This client participated and a fear he has is he questions if he can have the same amount of fun as he had when using. We talked about the crazy fun he had is replaced with deeper things such as tatiana and intimate relationships.
--- NOTE | 2016-12-08 17:53 | NUR ---
INDIVIDUAL SESSION 1 HR: Client looked over [place] PLAN REVIEW AND ADDITIONAL TCX PLANS on work that he has completed or still is working on. He signed all copies; additional copies were made for his journal. Client did express hurt and anger over last session which occurred 07/08. Client expressed thought that I was upset that he had decided to go to the [facility] in [place]. Staff expressed to him that I think it is great that he has made this decision and am supportive of it. I explained that my concernl on Monday was that client appeared to be manipulating several staff members to get things to work his way. Unfortunately, there were multiple perceptions/reports on how all of this came down and it is still unclear. I suggested that the most important thing was that he has been accepted at the [facility] and that should be a good thing. About that time, counselor Jesusita came to explain that she will not be able to work with this client in aftercare because her position and responsibilities have been changed. I then talked with client about going to [facility] in [place] which will be more convenient anyway as he will be living over there. He verbalized agreement to do so.
--- NOTE | 2016-12-08 20:33 | NUR ---
Education: 1 Hour. Client attended Tristen De León video "Step 5."
--- NOTE | 2016-12-08 22:52 | NUR ---
Client went on a walk for rec, participated in guided meditation, and attended the on unit A.A.Meeting. SE: Wearing a pair of shorts today
--- NOTE | 2016-12-09 05:23 | NUR ---
N) Devon went on walk for rec,participated in Guided Meditation, attended AA mtg.
--- NOTE | 2016-12-09 05:28 | NUR ---
Bed Note: Client was in bed and motionless at all bed checks.
--- NOTE | 2016-12-09 12:43 | NUR ---
Group 1.5 Hr Ratio 07/19/Topics today were two Getting Started Packets, talking about when it was discovered when they knew they were addicted and relationships. Client shared when he first realized he had a problem with addiction.
--- NOTE | 2016-12-09 13:00 | NUR ---
PEER REVIEWS 1.5 HRS: Clt participated in peer review process and received his own. He heard he is the class clown, doesn't open up to others, gets easily frustrated, needs to focus on his recovery, has major, is stubborn, is an adrenaline junky, isn't sure if he really wants to quit drinking, and doesn't know if he can have fun in recovery. He felt sad.
--- NOTE | 2016-12-09 14:21 | NUR ---
Tech Note: Client watched Recovery Issues Part 3. Is working on his Change Plan.
--- NOTE | 2016-12-09 15:18 | NUR ---
INDIVIDUAL SESSION 1 HR: client continued to process on his CHANGE PLAN/RELAPSE PREVENTION packets. He seems to have done well on these or at least says the right things. Client does refer to things he has picked up in education or in group that are meaningful for him. A good sign. Informed him that his is scheduled to come on Monday at 7:45P and we will likely bring her in to Family Group so that she can hear his letter or at least this is the plan. He is to continue to work on his packets.
--- NOTE | 2016-12-09 15:21 | NUR ---
DISCHARGE PLANNING: Client signed a RELEASE to [facility] in [place]. Client was told that he will need to go there and complete the Orientation and paperwork before they will schedule him.
--- NOTE | 2016-12-09 20:08 | NUR ---
Tech note: Clt read guidelines as a grp, attended optional AA mtg and watched tv/movies. Used phone and played game. SE was seeing techs
--- NOTE | 2016-12-10 05:19 | NUR ---
BED NOTE: Client was in bed, motionless with eyes closed all bed checks.
--- NOTE | 2016-12-10 16:41 | NUR ---
Tech Note: Client attended NA Panel today and is working on his Change Plan.
--- NOTE | 2016-12-10 20:07 | NUR ---
TECH NOTE: Client participated in beads for REC, attended offsite AA meeting and watched TV/Movies. SE: visits
--- NOTE | 2016-12-11 04:54 | NUR ---
Bed Note: Clt lay motionless in bed with eyes closed showing no distress at all bed checks.
--- NOTE | 2016-12-11 16:04 | NUR ---
Tech Note: Client is working on his Change Plan.
--- NOTE | 2016-12-11 22:49 | NUR ---
Tech Note: Client attended the on unit A.A.Panel. SE: [place]
--- NOTE | 2016-12-12 04:40 | NUR ---
Client was in bed and motionless at all bed checks.
--- NOTE | 2016-12-12 09:52 | NUR ---
Bruno notes: Client is working on BB and mtg with esthela
--- NOTE | 2016-12-12 13:34 | NUR ---
Education note: Client attended educational speaker Briana on Tobacco
--- NOTE | 2016-12-12 13:52 | NUR ---
PEER REVIEWS/Morning Group 1.50 HRS: Clt participated in peer reviews and took a risk to give open and honest feedback to those receiving a review. Client participated in morning group and offered feedback to other clients along with asking for feedback about situations he has been in while going to meetings. For example: Client shared he used to go to meetings in [place] and ran into someone that also attended those meetings. He stated he was at a bar drinking and the same juan josé came by and stated he just celebrated 6 years being sober and then grabbed his drink and slammed it. Client was given feedback that there are people in recovery that are still sick and that he needs to find a meeting that he can learn from and enjoy.
--- NOTE | 2016-12-12 14:30 | NUR ---
FAMILY EDUCATION 3 hrs. Client attended alone and took part in the discussion on the family roles, codependency and detachment.
--- NOTE | 2016-12-12 15:00 | NUR ---
FINAL SESSION 1 HR: Met with client who finished processing treatment plan objectives. Client informed staff that his and kids were all sick with the flu this weekend so she cannot come to get him today. Client has made arrangements for a "friend" to pick him up. I question client's honesty and am not surprised that is not going to be for family group. director of child welfare services asked that he discharge immediately following Family Ed. Completed CONTINUED CARE PLAN and presented medallion.
--- NOTE | 2016-12-12 16:41 | NUR ---
DISCHARGE NOTE Client left tx with all personal belongings. Discharge instructions gone over and copy given.
--- NOTE | 2017-01-15 16:59 | DS ---
ADMIT: 11/21/2016 RM/LOC: Matthew [facility] MR#: [id number] [address] [address] ASHLEY GERBER Keon [address] [place] [address] General Discharge Summary SEX: M AGE: 26 : 1990 ADMISSION DATE: 11/21/2016 DISCHARGE DATE: 12/12/2016 ADMITTING DIAGNOSIS: As per history and physical. FINAL DIAGNOSES: 1. Alcohol use disorder, severe. 2. Tobacco use disorder. 3. Chronic gastroesophageal reflux/reflux esophagitis. COMPLICATIONS: None. OPERATIONS: None. CLINICAL HISTORY: The patient is a 26-year-old white male, who is readmitted to the residential care program for treatment of his alcohol use disorder. The patient had previously been admitted on 11/07/2016 and remained in treatment until 11/14/2016. He left [facility] at that time. After getting some misinformation from his public services assistant, he now returns to treatment for completion of treatment. For further details of his clinical history as well as his past medical history and pertinent findings on physical exam, please see dictated history and physical. Laboratory and x-ray summary from this admission, none indicated, none performed. HOSPITAL COURSE: The patient was admitted and assigned to his primary counselor, Robert Beatty. During this stay, he remained at the treatment program from 11/21/2016 through 12/12/2016. While in treatment, he participated in individual therapy and group therapy. He was also given the educational series on substance abuse and worked on many of these assignments. He did attend the family education and family group sessions, but none of his family participated. While in treatment, he was accepting of his substance abuse problem and worked well with the staff in both individual and group settings. He was able to complete step 1 of AA during this level of care. While in treatment, he had no significant medical issues. He was able to complete all objectives of his treatment plan including completing step 1 of AA. He did write feeling letters to his family members. He worked on relapse prevention and was able to identify obstacles to his sobriety. He came up with his own personal relapse prevention plan. He ultimately completed his residential treatment goals and was felt to be ready for the next level of care. The patient was dismissed to the [facility] [address] in [place]. He is going to reside there while he participates in outpatient treatment over the next 6 months. The patient will do his outpatient aftercare at [facility] in [place] to include both weekly individual and weekly group therapy. He is going to reside at the [facility]. He is going to try to attend 3 to 5 AA meetings per week and maintain daily contact with his sponsor. He is going to try to work a strong program of recovery while he was residing at the [facility]. ADMIT: 11/21/2016 RM/LOC: [facility] MR#: [id number] [address] [place] [id number] ASHLEY GERBER [address] [place] [address] General Discharge Summary SEX: M AGE: 26 : 1990 CONDITION AT DISCHARGE: Improved. PROGNOSIS: [place] to be good in view of his positive attitude towards recovery. DISCHARGE MEDICATIONS: Included Protonix 40 mg 1 daily for his acid reflux. He was also encouraged to remain on an [id number]-org-[id number] multivitamin once daily and thiamine 100 mg once daily. CONDITION AT DISCHARGE: Stable and improved. PROGNOSIS: As noted is felt to be good. Aubrey Silva MD/ malcolm JOB #: [id number] CC: Aubrey Silva MD, Attending Physician NO FAMILY PHYSICIAN, Family Physician
== END 2016-12-12 16:42 | disposition home or self-care (01) | DRG 895 ==
LOC: ADTC 09:07
PROVIDERS: ADMIT Family Medicine
PROC: HZ34ZZZ Individual Counseling for Substance Abuse Treatment, Interpersonal (ICD-10-PCS; principal; 2016-11-21)
PROC: HZ43ZZZ Group Counseling for Substance Abuse Treatment, 12-Step (ICD-10-PCS; principal; 2016-11-21)
DX: F10.20 Alcohol dependence, uncomplicated (principal); F17.210 Nicotine dependence, cigarettes, uncomplicated; K21.9 Gastro-esophageal reflux disease without esophagitis; Z65.3 Problems related to other legal circumstances